=== PATIENT | male | born 1950 | race Caucasian/White ===

== ENCOUNTER 2016-10-11 23:07 | Inpatient (IN) | payer MEDICARE, MEDICAID ==
[2016-10-11 23:08] VITALS: BMI 24.9
[2016-10-12] MEDS ORDERED: Labetalol 25mg/5ml Syringe IVP STA ×3 (00:15→07:48)
--- NOTE | 2016-10-12 00:19 | C.PDOC ---
History Of Present Illness 66 y/o male hx HTN presents to the ED with complains of elevated blood pressure with associated headache and dizziness. Pt takes metoprolol twice daily and norvasc once daily. Pt reports periodic episodes of high blood pressure in the past. Pt states yesterday his arm felt numb briefly and then resolved. He took his normal medications and BP improved. Pt checked blood pressure today which was again elevated and reports persistent headache. He did take his medication as prescribed today. Time Seen by Provider: 10/12/16 00:09 Chief Complaint (Nursing): High Blood Pressure History Per: Patient History/Exam Limitations: no limitations Onset/Duration Of Symptoms: Hrs, Intermittent Episodes Current Symptoms Are (Timing): Still Present Associated Symptoms: Headache. denies: Chest Pain, Blurred Vision Severity: Moderate Recent travel outside of the [place]: No Past Medical History Reviewed: Historical Data, Nursing Documentation, Vital Signs Vital Signs: Last Vital Signs Temp 97.6 F 10/11/16 23:49 Pulse 96 H 10/11/16 23:49 Resp 20 10/11/16 23:49 BP 185/130 H 10/11/16 23:49 Pulse Ox 97 10/12/16 00:21 - Medical History PMH: HTN, Hypercholesterolemia Family History: States: Unknown Family Hx - Social History Hx Tobacco Use: Yes Hx Alcohol Use: No Hx Substance Use: No - Immunization History Hx Tetanus Toxoid Vaccination: No Hx Influenza Vaccination: No Hx Pneumococcal Vaccination: No Review Of Systems Except As Marked, All Systems Reviewed And Found Negative. Eyes: Negative for: Vision Change Cardiovascular: Negative for: Chest Pain Respiratory: Negative for: Shortness of Breath Gastrointestinal: Negative for: Vomiting Neurological: Positive for: Headache, Dizziness. Negative for: Weakness, Numbness Physical Exam - Physical Exam Appears: Non-toxic, No Acute Distress Skin: Warm, Dry, No Rash Head: Atraumatic, Normacephalic Eye(s): bilateral: PERRL Neck: Normal ROM, Supple Chest: Symmetrical Cardiovascular: Rhythm Irregular (tachycardia), No Murmur Respiratory: Normal Breath Sounds, No Rales, No Rhonchi, No Wheezing Gastrointestinal/Abdominal: Soft Extremity: No Pedal Edema Extremity: Bilateral: Atraumatic Neurological/Psych: Oriented x3, Normal Speech, Normal Motor, Normal Sensation ED Course And Treatment O2 Sat by Pulse Oximetry: 97 (on room air) Pulse Ox Interpretation: Normal - Radiology CXR: Interpreted by Me CXR Interpretation: Yes: No Acute Disease, Cardiomegaly Progress Note: Patient treated with labetolol 20mg IV. Medical Decision Making Medical Decision Making: Plan: CT head, EKG, labs, CXR, UA, IV fluids Disposition - Disposition Disposition Time: 00:44 Condition: GUARDED - Clinical Impression Clinical Impression: Hypertensive urgency - Scribe Statement The provider has reviewed the documentation as recorded by the Viviana Candelario Provider Attestation: All medical record entries made by the Viviana were at my direction and personally dictated by me. I have reviewed the chart and agree that the record accurately reflects my personal performance of the history, physical exam, medical decision making, and the department course for this patient. I have also personally directed, reviewed, and agree with the discharge instructions and disposition. Physician Patient Turnover Patient Signed Over To: Jerry Alvarenga Handoff Comments: Pending labs, CT, EKG and improvement of BP following medication.
[2016-10-12] MEDS ORDERED: Labetalol 25mg/5ml Syringe ONE ×2 (00:40→02:57)
[2016-10-12 00:55] LABS: BASO # 0.1 K/uL (0.0-0.2); BASO % 1.1 % (0.0-2.0); EOS # 0.1 K/uL (0.0-0.7); EOS % 2.1 % (0.0-4.0); HEMATOCRIT 48.1 % (35.0-51.0); LYMPH # 1.9 K/uL (1.0-4.3); LYMPH % 37.2 % (20.0-40.0); MEAN CELL VOLUME 85.3 fL (80.0-94.0); MEAN CORPUSCULAR HEMOGLOBIN 28.1 pg (27.0-31.0); MEAN CORPUSCULAR HGB CONC 32.9 g/dL (33.0-37.0); MEAN PLATELET VOLUME 9.9 fL (7.2-11.7); MONO # 0.7 K/uL (0.0-0.8); MONO % 14.2 % (0.0-10.0); NRBC % 0.1 % (0.0-2.0); RED CELL DISTRIBUTION WIDTH 14.8 % (11.5-14.5); WHITE BLOOD COUNT 5.1 K/uL (4.8-10.8)
[2016-10-12 01:02] LABS: CHLORIDE 99 mmol/L (98-107); SODIUM 143 mmol/L (132-148)
[2016-10-12 01:04] LABS: ALB/GLOB RATIO 1.1 (1.0-2.1); ALKALINE PHOSPHATASE 63 U/L (38-126); AST/SGOT 37 U/L (17-59); BILIRUBIN,TOTAL 0.9 mg/dL (0.2-1.3); CARBON DIOXIDE 27 mmol/L (22-30); GFR AFRICAN-AMERICAN > 60; TOTAL PROTEIN 8.4 g/dL (6.3-8.3)
[2016-10-12 01:05] LABS: ALT/SGPT 34 U/L (21-72); BLOOD UREA NITROGEN 12 mg/dL (9-20); GLUCOSE,RANDOM 118 mg/dL (75-110); MAGNESIUM 2.5 mg/dL (1.6-2.3)
[2016-10-12 01:10] LABS: POTASSIUM 5.5 mmol/L (3.6-5.2)
[2016-10-12 01:25] LABS: RBC URINE < 1 /hpf (0-3); URINE BILIRUBIN NEGATIVE (NEGATIVE); URINE BLOOD NEGATIVE (NEGATIVE); URINE COLOR Straw (YELLOW); URINE GLUCOSE (UA) NORMAL (Normal); URINE KETONE NEGATIVE (NEGATIVE); URINE LEUKOCYTE ESTERASE NEG Leu/uL (Negative); URINE PROTEIN NEGATIVE (NEGATIVE); URINE UROBILINOGEN NORMAL mg/dL (0.2-1.0)
--- NOTE | 2016-10-12 02:04 | CT ---
EXAM: CT Head Without Intravenous Contrast. CLINICAL HISTORY: 66 years old, male; Pain; Headache and other: R/O bleed, hbp TECHNIQUE: Axial computed tomography images of the head/brain without intravenous contrast. This CT exam was performed using one or more of the following dose reduction techniques: automated exposure control, adjustment of the mA and/or kV according to patient size, and/or use of iterative reconstruction technique. EXAM DATE/TIME: 10/12/2016 12:15 AM COMPARISON: No relevant prior studies available. FINDINGS: BRAIN: Right frontal extra-axial collection is seen, small to moderate in size, measuring up to 9 mm in depth, most compatible with a right frontal subdural hematoma. This is of mixed density. It appears composed of both acute and subacute hemorrhage. It is causing mild mass effect. There is mild sulcal effacement in the right frontal lobe. Diffuse, mild, age-related cortical atrophy and ventriculomegaly. No other significant abnormality identified.No additional areas of acute hemorrhage are visualized. No evidence of midline shift, ventricular effacement, or basilar cistern effacement. Normal santiago-white matter differentiation. VENTRICLES: No evidence of significant hydrocephalus. BONES/JOINTS: No acute fractures or other acute bony abnormality noted. SOFT TISSUES: No acute abnormality of the visualized soft tissues is seen. SINUSES: Visualized paranasal sinuses appear clear. MASTOID AIR CELLS: Mastoid air cells appear clear. IMPRESSION: - Small to moderate right frontal subdural hematoma, 9 mm thick, which appears composed of both subacute and acute hemorrhage. - See above for remaining findings.
[2016-10-12] MEDS ORDERED: Labetalol 5 mg/ml Inj 20ML IV STA (02:56)
--- NOTE | 2016-10-12 07:10 | CP.PCM.CON ---
<MichaelPatricia - Last Filed: 10/12/16 07:13> History of Present Illness - History of Present Illness History of Present Illness: 66-year-old male with history of hypertension hyperlipidemia came to the emergency room with the elevated blood pressure and associated with the headache and dizziness patient is currently taking the medications but recently his blood pressure is somewhat highly elevated in spite of patient taking the medication persistent to be on the high side. He started having headache for recently with associated with the some dizziness. No history of fall and injury noted recently Past medical history: Hypertension hyperlipidemia Personal history: Patient is currently smoking, but no alcohol noted No recent trauma or injury noted Family history noncontributory Review of system: Currently having headache nonspecific No nausea vomiting noted. Denies any chest pain currently. 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 Associated with the bleeding at this time. Closely monitor the blood pressure. Neurologic evaluation neuro consultation Follow-up. No antiplatelets. Emergency room already spoke to the neurosurgery team no neurosurgery at this time. Continue to watch the neurological condition. Past Patient History - Past Social History Smoking Status: Former Smoker - CARDIAC Hx Hypercholesterolemia: Yes Hx Hypertension: Yes - NEUROLOGICAL HX Cerebrovascular Accident: Yes - PSYCHIATRIC Hx Substance Use: No - ANESTHESIA Hx Anesthesia: No Meds Allergies/Adverse Reactions: Allergies Allergy/AdvReac Type Severity Reaction Status Date / Time ampicillin Allergy RASH Verified 10/12/16 12:28 BENZELLEN Allergy RASH Uncoded 10/12/16 12:28 Results - Vital Signs Recent Vital Signs: Last Vital Signs Temp 97.6 F 10/11/16 23:49 Pulse 75 10/12/16 05:48 Resp 18 10/12/16 06:28 BP 135/93 H 10/12/16 06:28 Pulse Ox 98 10/12/16 06:28 - Labs Result Diagrams: 10/12/16 00:52 10/12/16 00:52 <Rowena Hodge - Last Filed: 10/12/16 20:16> History of Present Illness - History of Present Illness History of Present Illness: seen and examined this morning, on a. fib, started on metoprolol for rate controlled, sbp elevated in am, but came below 130 mmhg o it's own, bp goals belo 130 mmhg. Neurologically intact. good platelet function test, coagulaiton times and platelet count. Takes aspirin and plavix for the past 2 days, not compliant in general. Meds - Medications Medications: Current Medications Famotidine (Pepcid) 20 mg PO DAILY [facility] Last Admin: 10/12/16 10:54 Dose: 20 mg Hydrochlorothiazide (Hydrodiuril) 25 mg PO DAILY [facility] Nicardipine HCl 25 mg/ Sodium (Chloride) 250 mls @ 50 mls/hr IV .Q5H [facility]; 5 MG/ HR PRN Reason: Protocol Last Admin: 10/12/16 09:50 Dose: Not Given Levetiracetam 500 mg/ Sodium (Chloride) 105 mls @ 420 mls/hr IVPB Q12 [facility] Last Admin: 10/12/16 11:00 Dose: 420 mls/hr Insulin Aspart (Novolog) 0 unit SC ACHS [facility] PRN Reason: Protocol Last Admin: 10/12/16 16:59 Dose: Not Given Metoprolol Tartrate (Lopressor) 25 mg PO Q12 [facility] Last Admin: 10/12/16 10:53 Dose: 25 mg Results - Vital Signs Recent Vital Signs: Last Vital Signs Temp 97.6 F 10/12/16 16:00 Pulse 96 H 10/12/16 19:06 Resp 18 10/12/16 19:06 BP 161/107 H 10/12/16 19:07 Pulse Ox 97 10/12/16 19:06 - Labs Result Diagrams: 10/12/16 00:52 10/12/16 00:52 Labs: Laboratory Results - last 24 hr 10/12/16 10/12/16 10/12/16 08:53 08:56 11:43 Plt Function Assay 219 POC Glucose (mg/dL) 170 H 146 H 10/12/16 16:08 Plt Function Assay POC Glucose (mg/dL) 96
[2016-10-12] MEDS ORDERED: Sod Polystyrene Sulf 15 gm/60 ml Oral Susp PO ONE (07:48)
[2016-10-12] MEDS ORDERED: niCARdipine IV 25 MG in Sodium Chloride 0.9% 240 ML IV SCH (08:00)
[2016-10-12 09:03] LABS: FUNCTIONING PLTS 219 K/uL; PLT BASE COUNT 231 K/uL; PLT(ADP) 12 K/uL
--- NOTE | 2016-10-12 09:09 | RAD ---
PROCEDURE: CHEST RADIOGRAPH, 1 VIEW HISTORY: SOB COMPARISON: 08/22/2013 FINDINGS: LUNGS: Clear. PLEURA: No pneumothorax or pleural fluid seen. CARDIOVASCULAR: Normal. OSSEOUS STRUCTURES: No significant abnormalities. VISUALIZED UPPER ABDOMEN: Normal. OTHER FINDINGS: None. IMPRESSION: No active disease.
[2016-10-12] MEDS ORDERED: Metoprolol 1 mg/ml Inj IVP ONE (10:20)
[2016-10-12] MEDS: levETIRAcetam 500 MG in Sodium Chloride 0.9% 100 ML IVPB SCH ×2 (11:00→21:16)
[2016-10-12] MEDS: (Novolog) Insulin Aspart, Recombinant 100 u/ml 10 ml vial SC SCH ×3 (12:17→21:23)
--- NOTE | 2016-10-12 13:37 | CP.PCM.HP ---
History of Present Illness - History of Present Illness History of Present Illness: 66 yo Male pt with pmh of HTN, HLD, presented to ED with c/o persistent headache, dizziness, high blood pressure when checked at home, pt is taking BP meds regularly, on metop[rolol, norvasc. no recent head injury no chest pain, abd pain, palpitation, no blurring of vision no fever, rash, nausea, vomiting. in ED, pt started on IV labetalol, CT head, EKG and blood workup done admitted Present on Admission - Present on Admission Any Indicators Present on Admission: No Past Patient History - Past Medical History & Family History Past Medical History?: Yes - Past Social History Smoking Status: Never Smoked - CARDIAC Hx Hypercholesterolemia: Yes Hx Hypertension: Yes - NEUROLOGICAL HX Cerebrovascular Accident: Yes - HEENT Other/Comment: Wears glasses for reading - ENDOCRINE/METABOLIC Hx Diabetes Mellitus Type 2: Yes - MUSCULOSKELETAL/RHEUMATOLOGICAL Hx Falls: No - PSYCHIATRIC Hx Substance Use: No - ANESTHESIA Hx Anesthesia: No Meds Home Medications: Home Medication List Medication Instructions Recorded Confirmed Type levETIRAcetam [Keppra] 500 mg PO BID #28 tab 10/16/16 Rx Allergies/Adverse Reactions: Allergies Allergy/AdvReac Type Severity Reaction Status Date / Time ampicillin Allergy RASH Verified 10/12/16 12:28 BENZELLEN Allergy RASH Uncoded 10/12/16 12:28 Physical Exam - Constitutional Appears: Well - Head Exam Head Exam: ATRAUMATIC, NORMAL INSPECTION, NORMOCEPHALIC - Eye Exam Eye Exam: EOMI, Normal appearance, PERRL Pupil Exam: NORMAL ACCOMODATION, PERRL - ENT Exam ENT Exam: Mucous Membranes Moist, Normal Exam - Neck Exam Neck exam: Positive for: Normal Inspection - Respiratory Exam Respiratory Exam: Decreased Breath Sounds - Cardiovascular Exam Cardiovascular Exam: REGULAR RHYTHM, +S1, +S2 - GI/Abdominal Exam GI & Abdominal Exam: Diminished Bowel Sounds, Soft - Rectal Exam Rectal Exam: Deferred Results - Vital Signs Recent Vital Signs: Last Vital Signs Temp 97.3 F L 10/12/16 12:00 Pulse 101 H 10/12/16 12:37 Resp 18 10/12/16 12:37 BP 141/81 10/12/16 12:37 Pulse Ox 98 10/12/16 12:00 - Labs Result Diagrams: 10/14/16 07:09 10/14/16 07:09 Labs: Laboratory Results - last 24 hr 10/12/16 10/12/16 10/12/16 08:53 08:56 11:43 Plt Function Assay 219 POC Glucose (mg/dL) 170 H 146 H Assessment & Plan (1) Allergic reaction caused by a drug Status: Acute (2) Atrial fibrillation Status: Acute (3) Bronchitis Status: Acute (4) Chest pain Status: Acute (5) Dizziness Status: Acute (6) Hypertensive urgency Status: Acute (7) Subdural hematoma Status: Acute - Assessment and Plan (Free Text) Plan: labs and meds reviewed Ct ehad report noted neuro consult cardio consult w/f neuro s/s nicdardipine accucheck
--- NOTE | 2016-10-12 15:18 | CON ---
DATE: 10/12/2016 HISTORY OF PRESENT ILLNESS: This is a 66-year-old [place] male with past medical history of hyperte nsion, hyperlipidemia, came to the hospital with the complaint of headache and dizziness. The patien t's blood pressure was slightly high and not taking his medications regularly and called to evaluate the patient. CAT scan of the head was done which showed right frontal subdural hematoma. PAST MEDICAL HISTORY: Hypertension: SOCIAL HISTORY: Smokes, does not drink. No history of other injury. REVIEW OF SYSTEMS: A 10-point review of system was negative except as noted above. PHYSICAL EXAMINATION: VITAL SIGNS: Blood pressure 185/130. HEENT: Normocephalic, atraumatic. NECK: Supple. NEUROLOGIC: Alert, awake, oriented x 3. No aphasia. Cranial nerves II-XII were tested. Pupils efe ctive. EOM intact. Visual angelo full. No facial asymmetry. Tongue midline. Motor: Moves all th e extremities equally. Tone normal. Deep tendon reflexes 1+. Both plantars are downgoing. Sensory appears intact. Cerebellar, gait deferred. IMPRESSION: Subdural hematoma, old and new. CAT scan showed right frontal subdural hematoma. Neuro surgical consult called. Continue present management. Workup in progress. We will follow up. Osmin Rubalcava MD cc: [id number] TT: 10/12/2016 15:17:30 Confirmation # [id number] Dictation # [id number] tn
--- NOTE | 2016-10-12 16:15 | CP.PCM.CON ---
History of Present Illness - History of Present Illness History of Present Illness: min sa sdh no nrs involvement req suggest f/u ct 2 wks Past Patient History - Past Medical History & Family History Past Medical History?: Yes - Past Social History Smoking Status: Never Smoked - CARDIAC Hx Hypercholesterolemia: Yes Hx Hypertension: Yes - NEUROLOGICAL HX Cerebrovascular Accident: Yes - HEENT Other/Comment: Wears glasses for reading - ENDOCRINE/METABOLIC Hx Diabetes Mellitus Type 2: Yes - MUSCULOSKELETAL/RHEUMATOLOGICAL Hx Falls: No - PSYCHIATRIC Hx Substance Use: No - ANESTHESIA Hx Anesthesia: No Meds Allergies/Adverse Reactions: Allergies Allergy/AdvReac Type Severity Reaction Status Date / Time ampicillin Allergy RASH Verified 10/12/16 12:28 BENZELLEN Allergy RASH Uncoded 10/12/16 12:28 - Medications Medications: Current Medications Famotidine (Pepcid) 20 mg PO DAILY [facility] Last Admin: 10/12/16 10:54 Dose: 20 mg Hydrochlorothiazide (Hydrodiuril) 25 mg PO DAILY [facility] Nicardipine HCl 25 mg/ Sodium (Chloride) 250 mls @ 50 mls/hr IV .Q5H [facility]; 5 MG/ HR PRN Reason: Protocol Last Admin: 10/12/16 09:50 Dose: Not Given Levetiracetam 500 mg/ Sodium (Chloride) 105 mls @ 420 mls/hr IVPB Q12 [facility] Last Admin: 10/12/16 11:00 Dose: 420 mls/hr Insulin Aspart (Novolog) 0 unit SC ACHS [facility] PRN Reason: Protocol Last Admin: 10/12/16 12:17 Dose: Not Given Metoprolol Tartrate (Lopressor) 25 mg PO Q12 [facility] Last Admin: 10/12/16 10:53 Dose: 25 mg Results - Vital Signs Recent Vital Signs: Last Vital Signs Temp 97.6 F 10/12/16 16:00 Pulse 84 10/12/16 16:00 Resp 20 10/12/16 16:00 BP 141/93 H 10/12/16 16:00 Pulse Ox 96 10/12/16 16:00 - Labs Result Diagrams: 10/12/16 00:52 10/12/16 00:52 Labs: Laboratory Results - last 24 hr 10/12/16 10/12/16 10/12/16 08:53 08:56 11:43 Plt Function Assay 219 POC Glucose (mg/dL) 170 H 146 H 10/12/16 16:08 Plt Function Assay POC Glucose (mg/dL) 96
--- NOTE | 2016-10-12 16:21 | CT ---
PROCEDURE: CT HEAD WITHOUT CONTRAST. HISTORY: bleeding COMPARISON: Earlier study same day TECHNIQUE: Axial computed tomography images were obtained through the head/brain without intravenous contrast. Radiation dose: Total exam DLP = 811 mGy-cm. FINDINGS: HEMORRHAGE: There is a small right frontal subdural hematoma which is predominantly low in density. This measures 7 mm in thickness. This is stable in appearance BRAIN: No mass effect or edema. No atrophy or chronic microvascular ischemic changes. VENTRICLES: Unremarkable. No hydrocephalus. CALVARIUM: Unremarkable. PARANASAL SINUSES: Unremarkable as visualized. No significant inflammatory changes. MASTOID AIR CELLS: Unremarkable as visualized. No inflammatory changes. OTHER FINDINGS: None. IMPRESSION: There is a small right frontal subdural hematoma which is predominantly low in density. This measures 7 mm in thickness. This is stable in appearance
[2016-10-13 06:27] LABS: BASO % 0.6 % (0.0-2.0); EOS # 0.2 K/uL (0.0-0.7); EOS % 2.8 % (0.0-4.0); HEMATOCRIT 49.8 % (35.0-51.0); LYMPH # 2.8 K/uL (1.0-4.3); LYMPH % 48.4 % (20.0-40.0); MEAN CELL VOLUME 85.4 fL (80.0-94.0); MEAN CORPUSCULAR HEMOGLOBIN 27.8 pg (27.0-31.0); MEAN CORPUSCULAR HGB CONC 32.6 g/dL (33.0-37.0); MEAN PLATELET VOLUME 10.3 fL (7.2-11.7); MONO # 0.5 K/uL (0.0-0.8); MONO % 9.2 % (0.0-10.0); RED CELL DISTRIBUTION WIDTH 14.8 % (11.5-14.5); WHITE BLOOD COUNT 5.7 K/uL (4.8-10.8)
[2016-10-13 06:33] LABS: CHLORIDE 100 mmol/L (98-107); POTASSIUM 3.9 mmol/L (3.6-5.2); SODIUM 141 mmol/L (132-148)
[2016-10-13 06:35] LABS: BILIRUBIN,TOTAL 0.6 mg/dL (0.2-1.3); GFR AFRICAN-AMERICAN > 60
[2016-10-13 06:36] LABS: ALB/GLOB RATIO 1.1 (1.0-2.1); ALKALINE PHOSPHATASE 70 U/L (38-126); ALT/SGPT 36 U/L (21-72); AST/SGOT 26 U/L (17-59); BLOOD UREA NITROGEN 10 mg/dL (9-20); CALCIUM 8.8 mg/dl (8.6-10.4); CARBON DIOXIDE 26 mmol/L (22-30); GLUCOSE,RANDOM 110 mg/dL (75-110); PHOSPHOROUS 4.3 mg/dL (2.5-4.5); TOTAL PROTEIN 7.2 g/dL (6.3-8.3)
[2016-10-13 06:37] LABS: MAGNESIUM 2.3 mg/dL (1.6-2.3)
[2016-10-13] MEDS: (Novolog) Insulin Aspart, Recombinant 100 u/ml 10 ml vial SC SCH ×4 (07:55→21:30)
--- NOTE | 2016-10-13 09:50 | CON ---
DATE: 10/12/2016 This is a 66-year-old individual. Apparently 2 days ago felt some lightheadedness, headache, some dy sesthesias. Was noted to have high blood pressure. Did not do anything about. This episode repeate d itself yesterday. He presented to the [facility] ER and was found to be markedly hypertensive . His symptoms actually cleared up pretty quickly. I am not sure if it was related to the control h is blood pressure or not. In the course of his workup, he had a CT of the brain that documented a sm all subdural collection. Interviewing him today, he is asymptomatic. PAST MEDICAL HISTORY, MEDICATIONS, ALLERGIES, SOCIAL HISTORY: All reviewed in the chart. PHYSICAL EXAMINATION: GENERAL: Bright, awake and alert, fully oriented. He follows all commands. NEUROLOGIC: Pupils are equal and reactive. Extraocular movements are full. Lower cranial nerves ar e all intact. MOTOR: He has no drift. He has 5/5 strength throughout. SENSORY: Grossly intact. CT of the brain shows a very small right chronic subdural hematoma with no mass effect. IMPRESSION AND PLAN: No neurosurgical intervention is required. My recommendation would be to repea t the scan in approximately 2 weeks to ensure that there is no increase in size. Reilly Adames MD cc: [id number] TT: 10/13/2016 09:49:50 Confirmation # [id number] Dictation # [id number] veronica
--- NOTE | 2016-10-13 10:17 | CP.PCM.PN ---
Subjective - Date & Time of Evaluation Date of Evaluation: 10/13/16 Time of Evaluation: 03:00 - Subjective Subjective: clinically same Objective - Vital Signs/Intake and Output Vital Signs (last 24 hours): Temp Pulse Resp BP Pulse Ox 97.5 F L 92 H 19 127/83 95 10/13/16 08:00 10/13/16 08:37 10/13/16 08:37 10/13/16 08:37 10/13/16 08:37 Intake and Output: 10/13/16 10/13/16 06:59 18:59 Intake Total 340 Output Total 650 Balance -310 - Medications Medications: Current Medications Famotidine (Pepcid) 20 mg PO DAILY [facility] Last Admin: 10/12/16 10:54 Dose: 20 mg Levetiracetam 500 mg/ Sodium (Chloride) 105 mls @ 420 mls/hr IVPB Q12 [facility] Last Admin: 10/12/16 21:16 Dose: 420 mls/hr Insulin Aspart (Novolog) 0 unit SC ACHS [facility] PRN Reason: Protocol Last Admin: 10/13/16 07:55 Dose: Not Given Metoprolol Tartrate (Lopressor) 50 mg PO Q12 [facility] - Labs Labs: 10/13/16 06:18 10/13/16 06:18 PT 11.4 SECONDS (9.7-12.2) 10/12/16 03:23 INR 1.0 10/12/16 03:23 APTT 29 SECONDS (21-34) 10/12/16 03:23 - Constitutional Appears: Well - Head Exam Head Exam: ATRAUMATIC, NORMAL INSPECTION, NORMOCEPHALIC - Eye Exam Eye Exam: EOMI, Normal appearance, PERRL Pupil Exam: NORMAL ACCOMODATION, PERRL - ENT Exam ENT Exam: Mucous Membranes Moist, Normal Exam - Neck Exam Neck Exam: Full ROM, Normal Inspection. absent: Lymphadenopathy - Respiratory Exam Respiratory Exam: Decreased Breath Sounds - Cardiovascular Exam Cardiovascular Exam: REGULAR RHYTHM, +S1, +S2 - GI/Abdominal Exam GI & Abdominal Exam: Soft, Diminished Bowel Sounds - Rectal Exam Rectal Exam: Deferred Assessment and Plan (1) Allergic reaction caused by a drug Status: Acute (2) Atrial fibrillation Status: Acute (3) Bronchitis Status: Acute (4) Chest pain Status: Acute (5) Dizziness Status: Acute (6) Hypertensive urgency Status: Acute (7) Subdural hematoma Status: Acute - Assessment and Plan (Free Text) Plan: feeling better no headache Dr Khadar Gomes IV accucheck no anti coag
[2016-10-13] MEDS: levETIRAcetam 500 MG in Sodium Chloride 0.9% 100 ML IVPB SCH ×2 (10:23→21:45)
--- NOTE | 2016-10-13 14:34 | CON ---
DATE: 10/13/2016 REASON FOR CONSULTATION: Chronic atrial fibrillation and subdural hematoma. HISTORY OF PRESENT ILLNESS: The patient is a 66-year-old [place] male who has history of chronic at rial fibrillation. He also diagnosed himself with early diabetes and he takes metformin on and off. He is a former laborer airport maintenance and knows how to take his blood sugar. The patient has been on aspiri n and Plavix for chronic atrial fibrillation by his primary physician. He presented because of blurr y vision, frontal headache and left arm numbness. The patient was found to have small right frontal subdural hematoma which is predominantly low in density measuring 7 mm in thickness. This is stable appearance according to the report. The patient denies any history of fall or head trauma. The josefina ent denies any history of stroke in the past. SOCIAL HISTORY: The patient is a former smoker, quit 3 years ago. He is a nondrinker. He lives wit h his . CURRENT MEDICATIONS: Lopressor 50 mg twice a day, Pepcid 20 mg p.o. daily and levetiracetam 500 mg I V piggyback twice a day. PHYSICAL EXAMINATION: GENERAL: The patient is a middle-aged male who does not appear to be in any distress. VITAL SIGNS: Blood pressure 123/78, heart rate 84, temperature 98.4, respiration 18. HEENT: Normocephalic. NECK: No JVD. CHEST: Clear. HEART: S1, S2 irregular. ABDOMEN: Soft. EXTREMITIES: No edema. LABORATORY DATA: CBC: WBC 5.7, hemoglobin 16.2, hematocrit 49.8, platelet count 270,000. SMA-7: S odium 141, potassium 3.9, chloride 100, CO2 26, glucose 110, BUN 10, creatinine 0.7. PT, PTT are wit hin normal limits. One set of troponin is negative. EKG revealed atrial fibrillation at rate of 97. ASSESSMENT: 1. Stable 7 mm width right frontal hematoma. 2. Chronic atrial fibrillation. 3. Diabetes mellitus. RECOMMENDATIONS: Case was discussed at length with both the mobile mechanic, Dr. Reina, as well as the i nternist, Dr. Ulises Guillen. The patient will be maintained on Lopressor at 50 mg twice a day. No antip latelet or anticoagulation until completely cleared by either neurologist or neurosurgeon. That was conveyed to the patient and his family. In the meantime, I will obtain hemoglobin A1c level and foll ow bedside echocardiographic study performed today. Jero Childs MD cc: [id number] TT: 10/13/2016 14:33:42 Confirmation # [id number] Dictation # [id number] tn
--- NOTE | 2016-10-13 18:51 | CP.CCUPN ---
<ChichiAkikohema - Last Filed: 10/13/16 19:14> CCU Subjective - Physician Review Subjective (Free Text): 10/13/16 18:40 Pt seen and examined in no acute distress. Patient stated that he feels fine. He was concerned about his blood pressure being elevated and the BP meds that he was receiving however he was reassured that his BP was within normal limits. At this time, patient denies subjective fevers or chills, nausea, vomiting, diarrhea, chest pain or palpitations. CCU Objective - Vital Signs / Intake & Output Vital Signs (Last 4 hours): Vital Signs Temp Pulse Resp BP Pulse Ox 10/13/16 16:28 97.1 F L 82 20 138/89 97 10/13/16 16:19 83 Intake and Output (Last 8hrs): Intake & Output 10/13/16 10/13/16 10/13/16 06:59 14:59 22:59 Intake Total 0 380 Output Total 650 350 Balance -650 30 Weight 172 lb 9.951 oz 172 lb Intake: Intake, IV Amount 100 Left Wrist 100 Oral 0 280 Output: Urine 650 350 Urine, Voided 650 350 Other: # Voids Urine, Voided 1 # Bowel Movements 0 - Physical Exam Head: Positive for: Atraumatic, Normocephalic Pupils: Positive for: PERRL Extroacular Muscles: Positive for: EOMI Conjunctiva: Positive for: Normal Mouth: Positive for: Moist Mucous Membranes Neck: Positive for: Normal Range of Motion Respiratory/Chest: Positive for: Clear to Auscultation Cardiovascular: Positive for: Normal S1, S2 Abdomen: Positive for: Normal Bowel Sounds. Negative for: Tenderness, Distention, Peritoneal Signs Back: Negative for: CVA Tenderness, Midline Tenderness Upper Extremity: Positive for: Normal ROM Neurological: Positive for: CN II-XII Intact, Speech Normal Skin: Positive for: Warm, Dry Psychiatric: Positive for: Alert, Oriented x 3, Normal Insight, Normal Concentration - Medications Active Medications: Active Medications Generic Name Dose Route Start Last Admin Trade Name Freq PRN Reason Stop Dose Admin Famotidine 20 mg 10/12/16 10:00 10/13/16 10:23 Pepcid PO 20 mg DAILY ADRY Administration Levetiracetam 500 mg/ Sodium 105 mls @ 420 mls/hr 10/12/16 10:30 10/13/16 10:23 Chloride IVPB 420 mls/hr Q12 ADRY Administration Insulin Aspart 0 unit 10/12/16 11:30 10/13/16 17:04 Novolog SC Not Given ACHS PENDING SALE TO [facility] Protocol Metoprolol Tartrate 50 mg 10/13/16 10:00 10/13/16 10:23 Lopressor PO 50 mg Q12 ADRY Administration - Patient Studies Lab Studies: Microbiology Studies 10/12/16 07:05 MRSA Culture (Admit) - Final Naris MRSA NOT DETECTED Lab Studies 10/13/16 10/13/16 10/13/16 Range/Units 17:07 16:38 11:14 WBC (4.8-10.8) K/uL RBC (4.40-5.90) Mil/uL Hgb (12.0-18.0) g/dL Hct (35.0-51.0) % MCV (80.0-94.0) fL MCH (27.0-31.0) pg MCHC (33.0-37.0) g/dL RDW (11.5-14.5) % Plt Count (130-400) K/uL MPV (7.2-11.7) fL Neut % (Auto) (50.0-75.0) % Lymph % (Auto) (20.0-40.0) % [place] % (Auto) (0.0-10.0) % Eos % (Auto) (0.0-4.0) % Baso % (Auto) (0.0-2.0) % Neut # (1.8-7.0) K/uL Lymph # (1.0-4.3) K/uL [place] # (0.0-0.8) K/uL Eos # (0.0-0.7) K/uL Baso # (0.0-0.2) K/uL Sodium (132-148) mmol/L Potassium (3.6-5.2) mmol/L Chloride (98-107) mmol/L Carbon Dioxide (22-30) mmol/L Anion Gap (10-20) BUN (9-20) mg/dL Creatinine (0.8-1.5) MG/DL Est GFR ( Amer) Est GFR (Non-Af Amer) POC Glucose (mg/dL) 98 78 172 H (65-110) mg/dL Random Glucose (75-110) mg/dL Hemoglobin A1c (4.2-6.5) % Calcium (8.6-10.4) mg/dl Phosphorus (2.5-4.5) mg/dL Magnesium (1.6-2.3) mg/dL Total Bilirubin (0.2-1.3) mg/dL AST (17-59) U/L ALT (21-72) U/L Alkaline Phosphatase (38-126) U/L Total Protein (6.3-8.3) g/dL Albumin (3.5-5.0) g/dL Globulin (2.2-3.9) gm/dL Albumin/Globulin Ratio (1.0-2.1) 10/13/16 10/13/16 10/12/16 Range/Units 07:35 06:18 21:13 WBC 5.7 (4.8-10.8) K/uL RBC 5.84 (4.40-5.90) Mil/uL Hgb 16.2 (12.0-18.0) g/dL Hct 49.8 (35.0-51.0) % MCV 85.4 (80.0-94.0) fL MCH 27.8 (27.0-31.0) pg MCHC 32.6 L (33.0-37.0) g/dL RDW 14.8 H (11.5-14.5) % Plt Count 270 (130-400) K/uL MPV 10.3 (7.2-11.7) fL Neut % (Auto) 39.0 L (50.0-75.0) % Lymph % (Auto) 48.4 H (20.0-40.0) % [place] % (Auto) 9.2 (0.0-10.0) % Eos % (Auto) 2.8 (0.0-4.0) % Baso % (Auto) 0.6 (0.0-2.0) % Neut # 2.2 (1.8-7.0) K/uL Lymph # 2.8 (1.0-4.3) K/uL [place] # 0.5 (0.0-0.8) K/uL Eos # 0.2 (0.0-0.7) K/uL Baso # 0.0 (0.0-0.2) K/uL Sodium 141 (132-148) mmol/L Potassium 3.9 (3.6-5.2) mmol/L Chloride 100 (98-107) mmol/L Carbon Dioxide 26 (22-30) mmol/L Anion Gap 19 (10-20) BUN 10 (9-20) mg/dL Creatinine 0.7 L (0.8-1.5) MG/DL Est GFR ( Amer) > 60 Est GFR (Non-Af Amer) > 60 POC Glucose (mg/dL) 119 H 99 (65-110) mg/dL Random Glucose 110 (75-110) mg/dL Hemoglobin A1c 7.1 H (4.2-6.5) % Calcium 8.8 (8.6-10.4) mg/dl Phosphorus 4.3 (2.5-4.5) mg/dL Magnesium 2.3 (1.6-2.3) mg/dL Total Bilirubin 0.6 (0.2-1.3) mg/dL AST 26 (17-59) U/L ALT 36 (21-72) U/L Alkaline Phosphatase 70 (38-126) U/L Total Protein 7.2 (6.3-8.3) g/dL Albumin 3.8 (3.5-5.0) g/dL Globulin 3.4 (2.2-3.9) gm/dL Albumin/Globulin Ratio 1.1 (1.0-2.1) Laboratory Results - last 24 hr 10/12/16 10/13/16 10/13/16 21:13 06:18 07:35 WBC 5.7 RBC 5.84 Hgb 16.2 Hct 49.8 MCV 85.4 MCH 27.8 MCHC 32.6 L RDW 14.8 H Plt Count 270 MPV 10.3 Neut % (Auto) 39.0 L Lymph % (Auto) 48.4 H [place] % (Auto) 9.2 Eos % (Auto) 2.8 Baso % (Auto) 0.6 Neut # 2.2 Lymph # 2.8 [place] # 0.5 Eos # 0.2 Baso # 0.0 Sodium 141 Potassium 3.9 Chloride 100 Carbon Dioxide 26 Anion Gap 19 BUN 10 Creatinine 0.7 L Est GFR ( Amer) > 60 Est GFR (Non-Af Amer) > 60 POC Glucose (mg/dL) 99 119 H Random Glucose 110 Hemoglobin A1c 7.1 H Calcium 8.8 Phosphorus 4.3 Magnesium 2.3 Total Bilirubin 0.6 AST 26 ALT 36 Alkaline Phosphatase 70 Total Protein 7.2 Albumin 3.8 Globulin 3.4 Albumin/Globulin Ratio 1.1 10/13/16 10/13/16 10/13/16 11:14 16:38 17:07 WBC RBC Hgb Hct MCV MCH MCHC RDW Plt Count MPV Neut % (Auto) Lymph % (Auto) [place] % (Auto) Eos % (Auto) Baso % (Auto) Neut # Lymph # [place] # Eos # Baso # Sodium Potassium Chloride Carbon Dioxide Anion Gap BUN Creatinine Est GFR ( Amer) Est GFR (Non-Af Amer) POC Glucose (mg/dL) 172 H 78 98 Random Glucose Hemoglobin A1c Calcium Phosphorus Magnesium Total Bilirubin AST ALT Alkaline Phosphatase Total Protein Albumin Globulin Albumin/Globulin Ratio Fingerstick Blood Sugar Results: 98 Review of Systems - Review of Systems Review of Systems: see subjective Critical Care Progress Note - Nutrition Nutrition: Nutrition Category Date Time Status Heart Healthy Diet [DIET] Diets 10/12/16 Dinner Active Assessment/Plan - Assessment and Plan (Free Text) Assessment: 66 year old male with PMHx significant for HTN and hyperlipidemia initially presented with elevated blood pressures. CT imaging showed evidence of new mildly acute subdural bleed as well as chronic bleed. Patient admitted to ICU for critical care monitoring. Plan: Neuro: aaox3 in no acute distress no apparent focal neurological deficits Head CT- right frontal subdural hematoma present which appears to be composed of both subacute and acute hemorrhage; stable in appearance 7mm decreased from initial Head CT reports ( 9mm) Neurosurgery- No surgical intervention at this time. F/U CT in 2 wks to ensure that hematoma is no increasing Neurology (Dr. Rubalcava) on the case Keppra IV Q12 - Seizure prophylaxis Cardio: Hx of HTN and hyperlipidemia Lopressor 50 mg PO Q12 No anticoagulation (chemical) until cleared by Neurology/Neurosurgery HgbA1c- F/U Pulm: No apparent infiltrative disease on CXR GI: Heart healthy diet Heme: Hgb/Hct WNL Cont to monitor Endo: Accuchecks ISS F/U HgbA1c Nephro: Renal function WNL Prophylaxis: Pepcid SCDs Chemical DVT prophylaxis contraindicated due to hx of subdural bleed on admission <ValerieRowena Velez - Last Filed: 10/13/16 19:48> CCU Objective - Vital Signs / Intake & Output Vital Signs (Last 4 hours): Vital Signs Temp Pulse Resp BP Pulse Ox 10/13/16 16:28 97.1 F L 82 20 138/89 97 10/13/16 16:19 83 Intake and Output (Last 8hrs): Intake & Output 10/13/16 10/13/16 10/13/16 06:59 14:59 22:59 Intake Total 0 380 Output Total 650 350 Balance -650 30 Weight 172 lb 9.951 oz 172 lb Intake: Intake, IV Amount 100 Left Wrist 100 Oral 0 280 Output: Urine 650 350 Urine, Voided 650 350 Other: # Voids Urine, Voided 1 # Bowel Movements 0 - Medications Active Medications: Active Medications Generic Name Dose Route Start Last Admin Trade Name Freq PRN Reason Stop Dose Admin Famotidine 20 mg 10/12/16 10:00 10/13/16 10:23 Pepcid PO 20 mg DAILY ADRY Administration Levetiracetam 500 mg/ Sodium 105 mls @ 420 mls/hr 10/12/16 10:30 10/13/16 10:23 Chloride IVPB 420 mls/hr Q12 ADRY Administration Insulin Aspart 0 unit 10/12/16 11:30 10/13/16 17:04 Novolog SC Not Given ACHS PENDING SALE TO [facility] Protocol Metoprolol Tartrate 50 mg 10/13/16 10:00 10/13/16 10:23 Lopressor PO 50 mg Q12 ADRY Administration - Patient Studies Lab Studies: Microbiology Studies 10/12/16 07:05 MRSA Culture (Admit) - Final Naris MRSA NOT DETECTED Lab Studies 10/13/16 10/13/16 10/13/16 Range/Units 17:07 16:38 11:14 WBC (4.8-10.8) K/uL RBC (4.40-5.90) Mil/uL Hgb (12.0-18.0) g/dL Hct (35.0-51.0) % MCV (80.0-94.0) fL MCH (27.0-31.0) pg MCHC (33.0-37.0) g/dL RDW (11.5-14.5) % Plt Count (130-400) K/uL MPV (7.2-11.7) fL Neut % (Auto) (50.0-75.0) % Lymph % (Auto) (20.0-40.0) % [place] % (Auto) (0.0-10.0) % Eos % (Auto) (0.0-4.0) % Baso % (Auto) (0.0-2.0) % Neut # (1.8-7.0) K/uL Lymph # (1.0-4.3) K/uL [place] # (0.0-0.8) K/uL Eos # (0.0-0.7) K/uL Baso # (0.0-0.2) K/uL Sodium (132-148) mmol/L Potassium (3.6-5.2) mmol/L Chloride (98-107) mmol/L Carbon Dioxide (22-30) mmol/L Anion Gap (10-20) BUN (9-20) mg/dL Creatinine (0.8-1.5) MG/DL Est GFR ( Amer) Est GFR (Non-Af Amer) POC Glucose (mg/dL) 98 78 172 H (65-110) mg/dL Random Glucose (75-110) mg/dL Hemoglobin A1c (4.2-6.5) % Calcium (8.6-10.4) mg/dl Phosphorus (2.5-4.5) mg/dL Magnesium (1.6-2.3) mg/dL Total Bilirubin (0.2-1.3) mg/dL AST (17-59) U/L ALT (21-72) U/L Alkaline Phosphatase (38-126) U/L Total Protein (6.3-8.3) g/dL Albumin (3.5-5.0) g/dL Globulin (2.2-3.9) gm/dL Albumin/Globulin Ratio (1.0-2.1) 10/13/16 10/13/16 10/12/16 Range/Units 07:35 06:18 21:13 WBC 5.7 (4.8-10.8) K/uL RBC 5.84 (4.40-5.90) Mil/uL Hgb 16.2 (12.0-18.0) g/dL Hct 49.8 (35.0-51.0) % MCV 85.4 (80.0-94.0) fL MCH 27.8 (27.0-31.0) pg MCHC 32.6 L (33.0-37.0) g/dL RDW 14.8 H (11.5-14.5) % Plt Count 270 (130-400) K/uL MPV 10.3 (7.2-11.7) fL Neut % (Auto) 39.0 L (50.0-75.0) % Lymph % (Auto) 48.4 H (20.0-40.0) % [place] % (Auto) 9.2 (0.0-10.0) % Eos % (Auto) 2.8 (0.0-4.0) % Baso % (Auto) 0.6 (0.0-2.0) % Neut # 2.2 (1.8-7.0) K/uL Lymph # 2.8 (1.0-4.3) K/uL [place] # 0.5 (0.0-0.8) K/uL Eos # 0.2 (0.0-0.7) K/uL Baso # 0.0 (0.0-0.2) K/uL Sodium 141 (132-148) mmol/L Potassium 3.9 (3.6-5.2) mmol/L Chloride 100 (98-107) mmol/L Carbon Dioxide 26 (22-30) mmol/L Anion Gap 19 (10-20) BUN 10 (9-20) mg/dL Creatinine 0.7 L (0.8-1.5) MG/DL Est GFR ( Amer) > 60 Est GFR (Non-Af Amer) > 60 POC Glucose (mg/dL) 119 H 99 (65-110) mg/dL Random Glucose 110 (75-110) mg/dL Hemoglobin A1c 7.1 H (4.2-6.5) % Calcium 8.8 (8.6-10.4) mg/dl Phosphorus 4.3 (2.5-4.5) mg/dL Magnesium 2.3 (1.6-2.3) mg/dL Total Bilirubin 0.6 (0.2-1.3) mg/dL AST 26 (17-59) U/L ALT 36 (21-72) U/L Alkaline Phosphatase 70 (38-126) U/L Total Protein 7.2 (6.3-8.3) g/dL Albumin 3.8 (3.5-5.0) g/dL Globulin 3.4 (2.2-3.9) gm/dL Albumin/Globulin Ratio 1.1 (1.0-2.1) Laboratory Results - last 24 hr 10/12/16 10/13/16 10/13/16 21:13 06:18 07:35 WBC 5.7 RBC 5.84 Hgb 16.2 Hct 49.8 MCV 85.4 MCH 27.8 MCHC 32.6 L RDW 14.8 H Plt Count 270 MPV 10.3 Neut % (Auto) 39.0 L Lymph % (Auto) 48.4 H [place] % (Auto) 9.2 Eos % (Auto) 2.8 Baso % (Auto) 0.6 Neut # 2.2 Lymph # 2.8 [place] # 0.5 Eos # 0.2 Baso # 0.0 Sodium 141 Potassium 3.9 Chloride 100 Carbon Dioxide 26 Anion Gap 19 BUN 10 Creatinine 0.7 L Est GFR ( Amer) > 60 Est GFR (Non-Af Amer) > 60 POC Glucose (mg/dL) 99 119 H Random Glucose 110 Hemoglobin A1c 7.1 H Calcium 8.8 Phosphorus 4.3 Magnesium 2.3 Total Bilirubin 0.6 AST 26 ALT 36 Alkaline Phosphatase 70 Total Protein 7.2 Albumin 3.8 Globulin 3.4 Albumin/Globulin Ratio 1.1 10/13/16 10/13/16 10/13/16 11:14 16:38 17:07 WBC RBC Hgb Hct MCV MCH MCHC RDW Plt Count MPV Neut % (Auto) Lymph % (Auto) [place] % (Auto) Eos % (Auto) Baso % (Auto) Neut # Lymph # [place] # Eos # Baso # Sodium Potassium Chloride Carbon Dioxide Anion Gap BUN Creatinine Est GFR ( Amer) Est GFR (Non-Af Amer) POC Glucose (mg/dL) 172 H 78 98 Random Glucose Hemoglobin A1c Calcium Phosphorus Magnesium Total Bilirubin AST ALT Alkaline Phosphatase Total Protein Albumin Globulin Albumin/Globulin Ratio Critical Care Progress Note - Nutrition Nutrition: Nutrition Category Date Time Status Heart Healthy Diet [DIET] Diets 10/12/16 Dinner Active Attending/Attestation - Attestation I have personally seen and examined this patient.: Yes I have fully participated in the care of the patient.: Yes I have reviewed all pertinent clinical information: Yes Notes (Text): 10/13/16 19:47 doing well, stable, neurologically intact, keppra for 2 weeks for seizure prevention, bp better controlled a. fib with rate controlled, chronic, no anticoagulation for at least 2 weeks ok for transfer to the floor
--- NOTE | 2016-10-14 06:39 | CARD ---
APPROVED REPORT EKG Measurement Heart [id number] <Conclusion> Atrial fibrillation Abnormal ECG
[2016-10-14 07:17] LABS: BASO % 0.7 % (0.0-2.0); EOS # 0.1 K/uL (0.0-0.7); EOS % 2.5 % (0.0-4.0); LYMPH # 2.4 K/uL (1.0-4.3); LYMPH % 43.8 % (20.0-40.0); MEAN CELL VOLUME 85.3 fL (80.0-94.0); MEAN CORPUSCULAR HGB CONC 32.8 g/dL (33.0-37.0); MONO # 0.5 K/uL (0.0-0.8); MONO % 8.6 % (0.0-10.0); RED CELL DISTRIBUTION WIDTH 14.6 % (11.5-14.5); WHITE BLOOD COUNT 5.5 K/uL (4.8-10.8)
[2016-10-14] MEDS: (Novolog) Insulin Aspart, Recombinant 100 u/ml 10 ml vial SC SCH ×4 (07:42→21:49)
[2016-10-14 07:52] LABS: CHLORIDE 101 mmol/L (98-107); SODIUM 141 mmol/L (132-148)
[2016-10-14 07:53] LABS: POTASSIUM 3.9 mmol/L (3.6-5.2)
[2016-10-14 07:55] LABS: ALB/GLOB RATIO 1.2 (1.0-2.1); ALKALINE PHOSPHATASE 70 U/L (38-126); ALT/SGPT 29 U/L (21-72); AST/SGOT 26 U/L (17-59); BILIRUBIN,TOTAL 0.6 mg/dL (0.2-1.3); BLOOD UREA NITROGEN 15 mg/dL (9-20); CARBON DIOXIDE 24 mmol/L (22-30); GFR AFRICAN-AMERICAN > 60; GLUCOSE,RANDOM 112 mg/dL (75-110); PHOSPHOROUS 4.7 mg/dL (2.5-4.5); TOTAL PROTEIN 7.1 g/dL (6.3-8.3)
[2016-10-14 07:56] LABS: CALCIUM 8.9 mg/dl (8.6-10.4); MAGNESIUM 2.2 mg/dL (1.6-2.3)
--- NOTE | 2016-10-14 14:43 | CP.PCM.PN ---
Subjective - Date & Time of Evaluation Date of Evaluation: 10/14/16 Time of Evaluation: 11:00 - Subjective Subjective: clinically same Objective - Vital Signs/Intake and Output Vital Signs (last 24 hours): Temp Pulse Resp BP Pulse Ox 97.7 F 79 20 136/83 95 10/14/16 07:44 10/14/16 08:00 10/14/16 07:44 10/14/16 14:09 10/14/16 07:44 Intake and Output: 10/14/16 10/14/16 06:59 18:59 Intake Total 205 Balance 205 - Medications Medications: Current Medications Famotidine (Pepcid) 20 mg PO DAILY [facility] Last Admin: 10/14/16 10:04 Dose: 20 mg Insulin Aspart (Novolog) 0 unit SC ACHS [facility] PRN Reason: Protocol Last Admin: 10/14/16 11:47 Dose: Not Given Levetiracetam (Keppra) 500 mg PO BID [facility] Last Admin: 10/14/16 10:04 Dose: 500 mg Metoprolol Tartrate (Lopressor) 50 mg PO Q12 [facility] Last Admin: 10/14/16 10:04 Dose: 50 mg - Labs Labs: 10/14/16 07:09 10/14/16 07:09 PT 11.4 SECONDS (9.7-12.2) 10/12/16 03:23 INR 1.0 10/12/16 03:23 APTT 29 SECONDS (21-34) 10/12/16 03:23 - Constitutional Appears: Well - Head Exam Head Exam: ATRAUMATIC, NORMAL INSPECTION, NORMOCEPHALIC - Eye Exam Eye Exam: EOMI, Normal appearance, PERRL Pupil Exam: NORMAL ACCOMODATION, PERRL - ENT Exam ENT Exam: Mucous Membranes Moist, Normal Exam - Neck Exam Neck Exam: Full ROM, Normal Inspection. absent: Lymphadenopathy - Respiratory Exam Respiratory Exam: Decreased Breath Sounds - Cardiovascular Exam Cardiovascular Exam: REGULAR RHYTHM, +S1, +S2 - GI/Abdominal Exam GI & Abdominal Exam: Soft, Diminished Bowel Sounds - Rectal Exam Rectal Exam: Deferred Assessment and Plan (1) Allergic reaction caused by a drug Status: Acute (2) Atrial fibrillation Status: Acute (3) Bronchitis Status: Acute (4) Chest pain Status: Acute (5) Dizziness Status: Acute (6) Hypertensive urgency Status: Acute (7) Subdural hematoma Status: Acute - Assessment and Plan (Free Text) Plan: labs reveiwed uriah same BP under control insulin Eliseo Dia consults on board
--- NOTE | 2016-10-14 16:49 | PN ---
DATE: 10/14/2016 The patient ambulated. He denies any dizziness, imbalance, headache, blurry vision, or arm numbness. No chest pain. PHYSICAL EXAMINATION: VITAL SIGNS: Blood pressure 125/78, heart rate 74, temperature 97.3, respirations 20. HEENT: Normocephalic. NECK: No JVD. CHEST: Clear. HEART: S1, S2 irregular. EXTREMITIES: No edema. LABORATORIES: Today's SMA-7 is within normal limits except for glucose of 112, anion gap of 21 and c reatinine 0.7. Hemoglobin and hematocrit 16.4 and 50.0. White count and platelet count are within n ormal limits. ASSESSMENT: 1. Stable small subdural hematoma. 2. Chronic atrial fibrillation. 3. Diabetes mellitus. The patient's hemoglobin A1c was 7.1. RECOMMENDATIONS: Continue current Keppra, Lopressor and Pepcid. I did review the echocardiograph [facility] which revealed concentric LVH with normal systolic function, moderate biatrial enlargement and mi ld to moderate pulmonary hypertension. Any future anticoagulation has to be neurologist or jorge rosurgeon. Jero Childs MD cc: [id number] TT: 10/14/2016 16:48:20 Confirmation # [id number] Dictation # [id number] martina
--- NOTE | 2016-10-14 20:47 | CARD ---
APPROVED REPORT EXAM: Two-dimensional and M-mode echocardiogram with Doppler and color Doppler. Other Information Quality : GoodRhythm : INDICATION Dizziness and Vertigo Atrial Fibrillation Chest Pain RISK FACTORS Hypertension M-Mode DIMENSIONS RVDd2.03 (2.1-3.2cm)Left Atrium (MM)4.79 (2.5-4.0cm) IVSd1.18 (0.7-1.1cm)Aortic Root2.73 (2.2-3.7cm) LVDd4.57 (4.0-5.6cm)Aortic Cusp Exc.1.70 (1.5-2.0cm) PWd0.96 (0.7-1.1cm)FS (%) 41 % LVDs2.69 (2.0-3.8cm)LVEF (%)72 (>50%) Mitral Valve MV E Iournjlb31.2cm/sE/A ratio0.0 TDI E/Lateral E'0.0E/Medial E'0.0 Tricuspid Valve TR Peak [id number]/sTR Peak [id number] LEFT VENTRICLE The left ventricle is normal size. There is normal left ventricular wall thickness. Left ventricle systolic function is normal. The Ejection Fraction is >70%. There is normal LV segmental wall motion. RIGHT VENTRICLE The right ventricle is normal size. There is normal right ventricular wall thickness. The right ventricular systolic function is normal. ATRIA The left atrium is moderately dilated. The right atrium is moderately dilated. The interatrial septum is intact with no evidence for an atrial septal defect. AORTIC VALVE The aortic valve is normal in structure. No aortic regurgitation is present. There is no aortic valvular stenosis. There is no aortic valvular vegetation. MITRAL VALVE The mitral valve is normal in structure. There is no evidence of mitral valve prolapse. There is no mitral valve stenosis. Mitral regurgitation is moderate. TRICUSPID VALVE The tricuspid valve is normal in structure. There is moderate tricuspid regurgitation. Right ventricular systolic pressure is estimated at 40-50 mmHg. There is mild-moderate pulmonary hypertension. PULMONIC VALVE The pulmonic valve is not well visualized. There is no pulmonic valvular regurgitation. GREAT VESSELS The aortic root is normal in size. PERICARDIAL EFFUSION There is no significant pericardial effusion. <Conclusion> Left ventricle systolic function is normal. The Ejection Fraction is >70%. No aortic regurgitation is present. Mitral regurgitation is moderate. There is moderate tricuspid regurgitation. There is mild-moderate pulmonary hypertension. There is no pulmonic valvular regurgitation.
[2016-10-15] MEDS: (Novolog) Insulin Aspart, Recombinant 100 u/ml 10 ml vial SC SCH ×4 (07:07→21:34)
--- NOTE | 2016-10-15 14:45 | PN ---
DATE: 10/15/2016 The patient denies any dizziness, headache or blurry vision. He did ambulate today. PHYSICAL EXAMINATION: VITAL SIGNS: Blood pressure 138/90, heart rate 86, temperature 97.5, respiration 20. HEENT: Normocephalic. NECK: No JVD. CHEST: Clear. HEART: S1, S2 irregular. EXTREMITIES: No edema. LABORATORIES: Today's blood sugars are 115 and 107. ASSESSMENT: 1. Stable subdural hematoma. 2. Chronic atrial fibrillation. 3. Diabetes mellitus. RECOMMENDATIONS: Continue current Keppra at 500 mg twice a day, Lopressor at 50 mg twice a day and _ ____ at 20 mg once a day. Case was discussed at length with the patient's family. Resumption of ant icoagulation has to be cleared by neurologist and preferably after repeating head CT scan. Jero Childs MD cc: [id number] TT: 10/15/2016 14:44:58 Confirmation # [id number] Dictation # [id number] en
--- NOTE | 2016-10-15 16:11 | CP.PCM.PN ---
Subjective - Date & Time of Evaluation Date of Evaluation: 10/15/16 Time of Evaluation: 09:50 - Subjective Subjective: clinically same Objective - Vital Signs/Intake and Output Vital Signs (last 24 hours): Temp Pulse Resp BP Pulse Ox 97.5 F L 86 20 138/90 94 L 10/15/16 08:06 10/15/16 11:46 10/15/16 08:06 10/15/16 11:46 10/15/16 11:46 - Medications Medications: Current Medications Famotidine (Pepcid) 20 mg PO DAILY [facility] Last Admin: 10/15/16 09:47 Dose: 20 mg Insulin Aspart (Novolog) 0 unit SC ACHS [facility] PRN Reason: Protocol Last Admin: 10/15/16 11:37 Dose: Not Given Levetiracetam (Keppra) 500 mg PO BID [facility] Last Admin: 10/15/16 09:47 Dose: 500 mg Metoprolol Tartrate (Lopressor) 50 mg PO Q12 [facility] Last Admin: 10/15/16 09:47 Dose: 50 mg - Labs Labs: 10/14/16 07:09 10/14/16 07:09 PT 11.4 SECONDS (9.7-12.2) 10/12/16 03:23 INR 1.0 10/12/16 03:23 APTT 29 SECONDS (21-34) 10/12/16 03:23 Assessment and Plan (1) Allergic reaction caused by a drug Status: Acute (2) Atrial fibrillation Status: Acute (3) Bronchitis Status: Acute (4) Chest pain Status: Acute (5) Dizziness Status: Acute (6) Hypertensive urgency Status: Acute (7) Subdural hematoma Status: Acute - Assessment and Plan (Free Text) Plan: pt alert oriented cleared by neuro/cardio d/c in next AM no anti coag for 2 weeks f/up with Cardio in 1 week f/up with neuro in 1 week come to ED if symptom recur
[2016-10-16] MEDS: (Novolog) Insulin Aspart, Recombinant 100 u/ml 10 ml vial SC SCH ×2 (07:17→11:30)
[2016-10-16 14:48] VITALS: RESP 18
[2016-10-16 15:08] VITALS: BP 124/71; PULSE 98; TEMP 98.1; O2SAT 98
--- NOTE | 2016-10-16 16:22 | PN ---
DATE: 10/16/2016 SUBJECTIVE: The patient was slightly hypertensive this morning with rehab. He denies any chest pain , no dizziness or blurry vision, no headache or arm numbness. PHYSICAL EXAMINATION: VITAL SIGNS: Most recent blood pressure 124/71, heart rate 98, temperature 98.1, respirations 18. HEENT: Normocephalic. NECK: No JVD. CHEST: Clear. HEART: S1, S2 regular. ABDOMEN: Soft. EXTREMITIES: No edema. ASSESSMENT: 1. Stable small subdural hematoma. 2. Chronic atrial fibrillation. 3. Hypertension. 4. Diabetes mellitus. RECOMMENDATIONS: The patient can be discharged from the cardiac point on Keppra 500 mg once a day, L asix 20 mg p.o. once a day, Lopressor 50 mg twice a day, Norvasc at 5 mg once a day. Follow up with the primary physician as well as neurologist. Coumadin will be resumed only after neurological clear ance, preferably after the CT scan without contrast. Jero Childs MD cc: [id number] TT: 10/16/2016 16:21:50 Confirmation # [id number] Dictation # [id number] an
--- NOTE | 2016-10-16 17:34 | CP.PCM.PN ---
Subjective - Date & Time of Evaluation Date of Evaluation: 10/16/16 Time of Evaluation: 11:00 - Subjective Subjective: Awake alert, ambulatory, NAD. Objective - Vital Signs/Intake and Output Vital Signs (last 24 hours): Temp Pulse Resp BP Pulse Ox 98.1 F 98 H 18 124/71 98 10/16/16 15:07 10/16/16 15:07 10/16/16 15:07 10/16/16 15:07 10/16/16 15:07 - Labs Labs: 10/14/16 07:09 10/14/16 07:09 PT 11.4 SECONDS (9.7-12.2) 10/12/16 03:23 INR 1.0 10/12/16 03:23 APTT 29 SECONDS (21-34) 10/12/16 03:23 Assessment and Plan - Assessment and Plan (Free Text) Assessment: Patient with stable subdural hematoma, seen and examined. Alert and oriented x3 , denies headaches or dizziness, Cleared by neuro and cardiology. D/W DR Kassandra Guillen , plan to discharge home today on keppra for 2 weeks. Advised to hold anticoagulants for 2 weeks. To follow up with PMD in 1 week.
== END 2016-10-16 15:16 | disposition home or self-care (01) | DRG 304 ==
LOC: C.ER 23:07 → C.9I 10-12 06:05 → C.5T 10-13 15:14
PROVIDERS: ADMIT Internal Medicine Nephrology; ATTEND Internal Medicine Nephrology
DX: I16.0 Hypertensive urgency (principal); I62.01 Nontraumatic acute subdural hemorrhage; I62.03 Nontraumatic chronic subdural hemorrhage; I48.91 Unspecified atrial fibrillation; E11.9 Type 2 diabetes mellitus without complications; E78.00 Pure hypercholesterolemia, unspecified; E78.5 Hyperlipidemia, unspecified; F17.210 Nicotine dependence, cigarettes, uncomplicated; Z91.14 Patient's other noncompliance with medication regimen; Z79.4 Long term (current) use of insulin